=== PATIENT | female | born 1990 | race Caucasian/White ===

== ENCOUNTER 2024-06-07 20:59 | Emergency (ER) | payer OTHER ==
[~2024-06-07] VITALS: Ht 162.6 cm; Wt 88.5 kg
[2024-06-07 21:20] VITALS: BP 159/81; PULSE 57; RESP 18; TEMP 98; O2SAT 98
--- NOTE | 2024-06-07 21:24 | NUR ---
urine cup given, ambulated to lobby after triage
[2024-06-07] MEDS ORDERED: DICYCLOMINE HCL LIQUID 10 MG/5 ML UDC ONE (22:51)
[2024-06-07] MEDS ORDERED: ALUMINUM HYD/MAG/SIMETHICONE 30 ML UDC ONE (22:51)
[2024-06-07] MEDS: DICYCLOMINE HCL LIQUID 20 MG, ALUMINUM HYD/MAG/SIMETHICONE 30 ML, LIDOCAINE VISCOUS 2% ... PO ONE (22:52)
[2024-06-07] MEDS ORDERED: FAMO-90 PO (22:57)
--- NOTE | 2024-06-07 23:06 | NUR ---
Patient discharged with v/s stable. Written and verbal after care instructions given FOR GASTRITIS Patient alert, oriented and verbalized understanding of instructions. Ambulatory with steady gait. All questions addressed prior to discharge. ID band removed. Patient advised to follow up with PMD. Rx of PEPCID given. Opportunity to ask questions provided and answered.
== END 2024-06-07 23:06 | disposition home or self-care (01) ==
LOC: MED 20:59
DX: R10.13 Epigastric pain (principal); R11.0 Nausea; Z79.899 Other long term (current) drug therapy
CPT/HCPCS: 81025; 99283

== ENCOUNTER 2024-07-16 08:03 | Emergency (ER) | payer OTHER ==
[~2024-07-16] VITALS: Ht 162.6 cm; Wt 83.9 kg
[~2024-07-16 08:03] MED LIST: FAMO-90 PO
[2024-07-16 08:24] VITALS: BP 164/103; PULSE 64; RESP 18; TEMP 98; O2SAT 100
[2024-07-16] MEDS: ALUMINUM HYD/MAG/SIMETHICONE 30 ML UDC PO ONE (09:26)
[2024-07-16 09:35] LABS: APPEARANCE,URINE CLEAR (CLEAR); BILIRUBIN,URINE NEGATIVE (NEGATIVE); BLOOD, URINE TRACE-I (NEGATIVE); COLOR,URINE YELLOW (YELLOW); LEUKOCYTE ESTERASE ,URINE NEGATIVE (NEGATIVE); NITRITE, URINE NEGATIVE (NEGATIVE); PH,URINE 7.5 (5.0-9.0); PROTEIN,URINE NEGATIVE (NEGATIVE); UGLUCOSE NEGATIVE (NEGATIVE)
[2024-07-16 09:47] LABS: BASOPHILS # (AUTO) 0.1 K/uL (0.00-0.22); BASOPHILS % (AUTO) 1.7 % (0.0-2.0); EOSINOPHILS # (AUTO) 0.1 K/uL (0-0.4); EOSINOPHILS % (AUTO) 1.4 % (0.0-4.0); HEMATOCRIT 46.8 % (36-48); HEMOGLOBIN 15.2 g/dL (12.0-16.0); LYMPHOCYTES # (AUTO) 1.1 K/uL (2.5-16.5); LYMPHOCYTES % (AUTO) 22.2 % (20.5-51.1); MEAN CORPUSCULAR HEMOGLOBIN 28 pg (27-31); MEAN CORPUSCULAR HGB CONC 33 g/dL (33-37); MEAN CORPUSCULAR VOLUME 85.8 fL (80-94); MONOCYTES # (AUTO) 0.3 K/uL (0.8-1.0); MONOCYTES % (AUTO) 6.5 % (1.7-9.3); NEUTROPHILS # (AUTO) 3.3 K/uL (1.8-7.7); NEUTROPHILS % (AUTO) 68.2 % (42.2-75.2); PLATELET COUNT (AUTO) 200 K/uL (140-450); RED BLOOD CELL COUNT(AUTO) 5.46 MIL/uL (4.20-5.40); RED CELL DISTRIBUTION WIDTH 13.9 % (11.6-13.7); WHITE BLOOD COUNT (AUTO) 4.9 K/uL (4.8-10.8)
[2024-07-16 10:00] LABS: ANION GAP 12.1 (8-16); CALCIUM 8.9 mg/dL (8.5-10.1); CARBON DIOXIDE 27.9 mmol/L (21-32); CREATININE 0.8 mg/dL (0.6-1.3)
[2024-07-16 10:06] LABS: ALBUMIN 3.4 g/dL (3.4-5.0); BILIRUBIN,DIRECT 0.3 mg/dL (0.0-0.3); TOTAL BILIRUBIN 1.3 mg/dL (0.0-1.0); TOTAL PROTEIN, SERUM 7.7 g/dL (6.4-8.2)
[2024-07-16] MEDS ORDERED: FAMO-90 PO (10:25)
[2024-07-16] MEDS ORDERED: CALC355O5 PO (10:25)
[2024-07-16 10:36] VITALS: BP 153/99; PULSE 78; RESP 16; TEMP 98; O2SAT 98
== END 2024-07-16 10:37 | disposition home or self-care (01) ==
LOC: MED 08:03
DX: K29.70 Gastritis, unspecified, without bleeding (principal); R03.0 Elevated blood-pressure reading, without diagnosis of hypertension; Z79.899 Other long term (current) drug therapy
CPT/HCPCS: 36415; 76705; 80048; 80076; 81003; 81025; 83690; 85025; 99284; Q0092